=== PATIENT | male | born 2000 | race African-American/Black ===

== ENCOUNTER 2023-08-09 14:18 | Emergency (ER) | payer SELFPAY ==
[~2023-08-09] VITALS: Ht 182.9 cm; Wt 83.1 kg
[2023-08-09] MEDS: LIDOCAINE 1% HCL (LOCAL ANESTH.) INJ 20ML MDV IJ ONE (15:06)
[2023-08-09] MEDS: TETANUS-DIPTH-ACEL PERTUSSIS 0.5ML SYR Tdap IM ONE (15:09)
[2023-08-09 15:30] VITALS: BP 115/63; PULSE 65; RESP 18; TEMP 98.9; O2SAT 98
[2023-08-09] MEDS ORDERED: NAPR-746 PO (15:41)
[2023-08-09] MEDS ORDERED: AUG875T PO (15:41)
== END 2023-08-09 15:45 | disposition home or self-care (01) ==
LOC: ER 14:18
DX: S51.811A Laceration without foreign body of right forearm, initial encounter (principal); S61.432A Puncture wound without foreign body of left hand, initial encounter; W54.0XXA Bitten by dog, initial encounter; Y93.89 Activity, other specified; Y92.89 Other specified places as the place of occurrence of the external cause; Y99.8 Other external cause status
CPT/HCPCS: 12002; 90471; 90715